=== PATIENT | female | born 1980 | race Caucasian/White ===

== ENCOUNTER 2022-11-21 08:56 | Day surgery (SDC) | payer OTHER ==
[~2022-11-21] VITALS: Ht 167.6 cm; Wt 80.7 kg
[~2022-11-21 08:56] MED LIST: ZOLOFT100 MG PO; [UNRECOGNIZED DRUG - OTHER] PO
[2022-11-21] MEDS ORDERED: MORGIDOX100 MG PO (12:51)
[2022-11-21] MEDS ORDERED: NAPR500T14 PO (12:51)
== END 2022-11-21 18:00 | disposition home or self-care (01) ==
LOC: CIR.AMB 08:56
PROVIDERS: ATTEND Obstetrics & Gynecology
DX: O02.1 Missed abortion (principal); O72.2 Delayed and secondary postpartum hemorrhage; Z20.822 Contact with and (suspected) exposure to COVID-19; Z86.16 Personal history of COVID-19